=== PATIENT | female | born 1980 | race Caucasian/White ===

== ENCOUNTER → 2019-05-09 | Outpatient (CLI) | payer OTHER ==
[~2019-05-09] MED LIST: REGADENOSON 0.4 MG/5 ML DISP.SYRIN. IV ONE
--- NOTE | 2019-05-09 09:30 | CARD ---
MR#: [id number] Date of Study: 05/09/2019 Ordering Physician: MAO MANZANO, Referring Physician: MAO MANZANO Tech: Yu Daniels RDCS APPROVED REPORT EXAM: Two-dimensional and M-mode echocardiogram with Doppler and color Doppler. Other Information Quality : Good INDICATION Dyspnea 2D DIMENSIONS RVDd2.5 (2.9-3.5cm)Left Atrium(2D)3.0 (1.6-4.0cm) IVSd0.8 (0.7-1.1cm)Aortic Root(2D)2.9 (2.0-3.7cm) LVDd4.8 (3.9-5.9cm)LVOT Diameter2.1 (1.8-2.4cm) PWd0.8 (0.7-1.1cm)LVDs3.3 (2.5-4.0cm) FS (%) 31.6 %SV63.6 ml LVEF(%)59.5 (>50%) Aortic Valve AoV Peak Rodrigo.133.8cm/sAoV VTI28.9cm AO Peak GR.7.2mmHgLVOT Peak Rodrigo.114.2cm/s LVOT VTI 26.14cmAO Mean GR.4mmHg BETTY (VMAX)2.92zt4YKQ (VTI)3.06cm2 Mitral Valve MV E Oxstqczp80.6cm/sMV DECEL DLTN212nj MV A Qnfltvrk06.1cm/sMV LLZ99cb E/A Ratio1.6MVA (PHT)3.02cm2 TDI E/Lateral E'12.0E/Medial E'8.0 Tricuspid Valve TR P. Qjijbkig752wv/sRAP MKGTOINX3jfMl TR Peak Gr.55vvOrGTVH01hvSg Pulmonary Vein S1 Sbwkzcsu25.0cm/sD2 Ykkkybhe69.4cm/s LEFT VENTRICLE The left ventricle is normal size. There is normal left ventricular wall thickness. The left ventricu lar systolic function is normal and the ejection fraction is within normal range. The Ejection Fracti on is 55-60%. There is normal LV segmental wall motion. Transmitral Doppler flow pattern is Grade II- pseudonormal filling dynamics. RIGHT VENTRICLE The right ventricle is normal size. The right ventricular systolic function is normal. ATRIA The left atrium size is normal. The right atrium size is normal. The interatrial septum is intact wit h no evidence for an atrial septal defect or patent foramen ovale as noted on 2-D or Doppler imaging. AORTIC VALVE The aortic valve is normal in structure and function. Doppler and Color Flow revealed no significant aortic regurgitation. There is no significant aortic valvular stenosis. MITRAL VALVE The mitral valve is normal in structure and function. There is no evidence of mitral valve prolapse. There is no mitral valve stenosis. Doppler and Color Flow revealed no mitral valve regurgitation note d. TRICUSPID VALVE The tricuspid valve is normal in structure and function. Doppler and Color Flow revealed trace tricus pid regurgitation. The PA pressure was estimated at 20 mmHg. There is no tricuspid valve stenosis. PULMONIC VALVE The pulmonic valve is not well visualized. Doppler and Color Flow revealed no pulmonic valvular regur gitation. There is no pulmonic valvular stenosis. GREAT VESSELS The aortic root is normal in size. The ascending aorta is normal in size. The IVC is normal in size a nd collapses >50% with inspiration. PERICARDIAL EFFUSION There is no evidence of significant pericardial effusion. Critical Notification Critical Value: No <Conclusion> The left ventricular systolic function is normal and the ejection fraction is within normal range. Th e Ejection Fraction is 55-60%. There is normal LV segmental wall motion. Signed by : Brad Burgess, Electronically Approved : 05/09/2019 09:29:32
--- NOTE | 2019-05-09 12:58 | RAD ---
MR#: [id number] Date of Study: 05/09/2019 Ordering Physician: MAO MANZANO, Referring Physician: NELSY KWON Tech: LUIS Sher APPROVED REPORT Test Type: Pharmacological Stress Nurse/Tech: Wendy Mattson R.N. Test Indications: dyspnea on exertion Cardiac History: asthma, hypotentsion, loop recorder Medications: see ehr Medical History: see ehr Resting ECG: sb Resting Heart Rate: 56 bpm Resting Blood Pressure: 105/57mmHg Pretest Chest Pain: No chest pain Nurse/Tech Notes lungs cta, heart tones regular Consent: The procedure was explained to the patient in lay terms. Informed consent was witnessed. Waldo eout was entered into [employer]. History and Stress Test performed by PABLO Delgado, DEANNA (R) (N) Pharm. Details Pharmacologic stress testing was performed using 0.4mg per 5ml of regadenoson given intravenously ove r 7-10 seconds. Stress Symptoms No chest pain or symptoms. POST EXERCISE Reason for Termination: Infusion complete Target HR: No Max HR: 102 bpm Max Blood Pressure: 97/48mmHg Chest Pain: No. Arrhythmia: No. ST Change: No. INTERPRETATION Stress EKG Conclusion: Baseline EKG showed sinus rhythm. No ischemic changes at peak stress. No arr hythmias. Imaging Protocol IMAGE PROTOCOL: Rest Tc-99m/stress Tc-99m 1 day Rest: Stress: Viability: Radiopharm.Tc99m DkvtpgterMx89e Sestamibi Dose10.7mCi 32mCi Duration 15min. 13min. Img Date 05/09/2019 05/09/2019 Inj-Img Sxwb50ixc. 60min. Rest Admin Site:IV - Right AntecubitalAdministrator:RT Allegra (R)(N) Stress Admin Site: IV - Right AntecubitalAdministrator: PABLO Delgado, ARRT (R)(N) STRESS DATA End Diast. Vol.124.0mlLVEDV index BSA70.0ml End Syst. Vol.39.0mlLVESV index BSA22.0ml Myocardial Epei473.0gEject. Acikasli79.0% Stress Scores Regional WT0.00Summed WT0.00 Regional WM0.00Summed WM5.00 Study quality was good. Left Ventricular size was Normal at Rest and Stress. Lung uptake was . Left Ventricular ejection fraction is 69%. The rest and stress images show normal perfusion, normal contraction and thickening. LV Perf. Quant 17 Seg. SSS0.00 17 Seg. SRS31.00 17 Seg. SDS0.00 Stress Defect Extent (% LAD)0.00Rest Defect Extent (% LAD)87.50Rev. Defect Extent (% LAD)0.00 Stress Defect Extent (% LCX) 0.00Rest Defect Extent (% LCX)96.30Rev. Defect Extent (% LCX)0.00 Stress Defect Extent (% RCA)0.00Rest Defect Extent (% RCA)32.20Rev. Defect Extent (% RCA)0.00 Stress Defect Extent (% ARMIN)0.00Rest Defect Extent (% ARMIN)73.70Rev. Defect Extent (% ARMIN)0.00 Conclusion 1. Regadenoson cardioisotope stress test did not show any evidence of ischemia or infarct. 2. Normal left ventricular systolic function with ejection fraction calculated at 69%. 3. Low risk for cardiac events. Signed by : Mao Manzano, Electronically Approved : 05/09/2019 12:57:27
== END | disposition home or self-care (01) ==
LOC: ECHO 07:55
PROVIDERS: ATTEND Internal Medicine Cardiovascular Disease
DX: R06.09 Other forms of dyspnea (principal); J45.909 Unspecified asthma, uncomplicated
CPT/HCPCS: 78452; 93017; 93306; A9500; J2785